=== PATIENT | male | born 1940 | race Caucasian/White ===

== ENCOUNTER → 2017-03-17 | Outpatient (CLI) | payer MEDICARE ==
[~2017-03-17] MED LIST: AEC81 PO; FINA5TAB41 PO; IOPAMIDOL-370 100 ML VIAL IV ONE; PRAV20TA4 PO; TAMS0.4C32 PO
== END | disposition home or self-care (01) ==
LOC: OIH 07:42
PROVIDERS: ATTEND Urology
DX: N28.1 Cyst of kidney, acquired (principal); K80.20 Calculus of gallbladder without cholecystitis without obstruction; N40.0 Benign prostatic hyperplasia without lower urinary tract symptoms; R31.0 Gross hematuria
CPT/HCPCS: 74178; Q9967

== ENCOUNTER 2017-04-01 07:33 | Day surgery (SDC) | payer MEDICARE ==
[2017-03-30 16:03] VITALS: BP 143/72
[2017-03-30 16:29] LABS: BASOPHILS % (AUTO) 0.3 % (0.0-5.0); EOSINOPHILS % (AUTO) 4.2 % (0.0-8.0); HEMATOCRIT 43.2 % (42-54); MEAN CORPUSCULAR HEMOGLOBIN 27.8 pg (27.0-33.0); MEAN CORPUSCULAR VOLUME 84.1 fL (79-99); MONOCYTES % (AUTO) 8.7 % (3.0-13.0); NEUTROPHILS % (AUTO) 63.8 % (40.0-77.0); NUCLEATED RED BLOOD CELLS 0.1 % (0.0-0.19); PLATELET COUNT (AUTO) 157 K/uL (130-400); RED BLOOD CELL COUNT(AUTO) 5.14 MIL/uL (4.50-6.20); RED CELL DISTRIBUTION WIDTH 14.6 % (11.0-15.5); WHITE BLOOD COUNT (AUTO) 6.4 K/uL (4.8-10.8)
[2017-03-30 16:36] LABS: CREATININE 1.2 mg/dL (0.5-1.5); POTASSIUM 4.4 mmol/L (3.5-5.1)
[~2017-04-01] VITALS: Ht 165.1 cm; Wt 73.7 kg
[2017-04-01] VITALS (16 sets, daily range): BP systolic 131–157; BP diastolic 62–81
[2017-04-01] MEDS: CEFTRIAXONE SODIUM 1 GM IVP SCH ×2 (06:00→08:07)
[~2017-04-01 07:33] MED LIST changes: -AEC81 PO; -IOPAMIDOL-370 100 ML VIAL IV ONE
[2017-04-01] MEDS ORDERED: WATER FOR INJECTION,STERILE 20 ML VIAL ONE (09:32)
[2017-04-01] MEDS ORDERED: LACTATED RINGERS 1000ML 1,000 ML IV ONE (09:32)
[2017-04-01] MEDS ORDERED: LIDOCAINE PF 2% 5ML ABBOJECT ONE (10:05)
[2017-04-01] MEDS ORDERED: SUCCINYLCHOLINE 200MG/10ML SYR ONE (10:05)
[2017-04-01] MEDS ORDERED: ONDANSETRON HCL 4 MG/2 ML VIAL ONE (10:05)
[2017-04-01] MEDS ORDERED: NEOSTIGMINE METHYLSULFATE 1MG/ML IV ONE (10:05)
[2017-04-01] MEDS ORDERED: DEXAMETHASONE SOD PHOSPHATE 10MG/ML 1ML VIAL ONE (10:05)
[2017-04-01] MEDS ORDERED: GLYCOPYRROLATE 0.2 MG/ML 5 ML VIAL ONE (10:05)
[2017-04-01] MEDS ORDERED: MIDAZOLAM HCL 1 MG/ML 2ML VIAL ONE (10:06)
[2017-04-01] MEDS ORDERED: PROPOFOL 10 MG/ML 20ML VIAL IV ONE (10:06)
[2017-04-01] MEDS ORDERED: ROCURONIUM BROMIDE 10MG/1ML 5ML VL ONE (10:06)
[2017-04-01] MEDS ORDERED: FENTANYL CITRATE PF 50 MCG/1 ML 5ML AMP IV ONE (10:07)
[2017-04-01] MEDS ORDERED: OPIUM/BELLADONNA ALKALOIDS 1 EACH SUPP.RECT RC ONE (12:06)
[2017-04-01] MEDS ORDERED: PHENAZOPYRIDINE HCL 200 MG TABLET ONE (13:18)
== END 2017-04-01 13:35 | disposition home or self-care (01) ==
LOC: DAH 07:33
PROVIDERS: ATTEND Urology
DX: N40.1 Benign prostatic hyperplasia with lower urinary tract symptoms (principal); R39.14 Feeling of incomplete bladder emptying; I10 Essential (primary) hypertension; I25.10 Atherosclerotic heart disease of native coronary artery without angina pectoris; I25.2 Old myocardial infarction; Z95.1 Presence of aortocoronary bypass graft; Z98.890 Other specified postprocedural states; Z88.8 Allergy status to other drugs, medicaments and biological substances; Z87.891 Personal history of nicotine dependence; Z87.19 Personal history of other diseases of the digestive system
CPT/HCPCS: 36415; 52648; 80048; 85025; 93005; A4354; A4358; A4510; A4600; J0330; J0696; J1100; J2001; J2250; J2405; J2704; J2710; J3010; J3490 ×2; J7030; J7120